=== PATIENT | female | born 1990 | race Caucasian/White ===

== ENCOUNTER 2018-03-24 23:00 | Observation (INO) | payer MEDICAID ==
[~2018-03-24] VITALS: Ht 172.7 cm; Wt 104.3 kg
[2018-03-25] MEDS ORDERED: PREN-380 PO (01:03)
== END 2018-03-25 01:20 | disposition home or self-care (01) ==
LOC: MLD 23:00
PROVIDERS: ADMIT Obstetrics & Gynecology; ATTEND Obstetrics & Gynecology
DX: O26.893 Other specified pregnancy related conditions, third trimester (principal); R10.31 Right lower quadrant pain; Z3A.35 35 weeks gestation of pregnancy
CPT/HCPCS: 76805; G0378; Q0092